=== PATIENT | male | born 1970 | race Caucasian/White ===

== ENCOUNTER 2016-12-20 06:16 | Inpatient (IN) | payer SELFPAY ==
[~2016-12-20] VITALS: Ht 172.7 cm; Wt 124.3 kg
[2016-12-20 06:20] VITALS: BP 155/87; PULSE 100; RESP 22; TEMP 97.9; O2SAT 94
[2016-12-20] MEDS ORDERED: METF1000 PO (06:25)
[2016-12-20] MEDS ORDERED: LISI-515 PO (06:25)
[2016-12-20] MEDS ORDERED: GLYB5TAB3 PO (06:25)
--- NOTE | 2016-12-20 06:28 | PD ---
HPI . Dyspnea Chief Complaint: Respiratory Symptoms Time Seen by Provider: 06:21 Travel History International Travel<30 days: No Contact w/Intl Traveler<30days: No Traveled to known affect area: No History of Present Illness HPI This patient presents by [facility] with the chief complaint of acute dyspnea. He had the onset of dyspnea approximately one hour prior to presentation. He reports no chest pain. No cough or fever. EMS reports initial saturations of 88%. Rales were heard on exam. He was treated in route with BiPAP and a single sublingual nitroglycerin. Symptoms are markedly improved at presentation. The patient does report a previous similar history. He states that he is supposed to be on blood pressure medication and diabetes medication but does not take it. No noted modifying factors. Symptoms were initially severe but are now mild. [facility] Social History Tobacco Use: Yes Allergies-Medications (Allergen,Severity, Reaction): Coded Allergies: codeine (Verified Allergy, Mild, 12/20/16) says jourdan riley Reported Meds & Prescriptions Reported Meds & Active Scripts Active Reported Glyburide 5 Mg Tab 10 Mg PO BID Take with meals at the same time each day Lisinopril 20 Mg Tab 20 Mg PO BID Metformin (Metformin HCl) 1,000 Mg Tab 1,000 Mg PO BID With a meal Review of Systems Except as stated in HPI: all other systems reviewed are Neg General / Constitutional: No: Fever, Chills Cardiovascular: No: Chest Pain or Discomfort Respiratory: Positive: Shortness of Breath Musculoskeletal: No: Edema Physical Exam Narrative GENERAL: Patient is lucid and able to give his own history. He is able to speak to us without any significant dyspnea. SKIN: Warm and dry. HEAD: Atraumatic. Normocephalic. EYES: Pupils equal and round. Extraocular movements are intact. ENT: No nasal bleeding or discharge. Mucous membranes pink and moist. NECK: Trachea midline. Neck is supple. CARDIOVASCULAR: Regular rate and rhythm. Heart sounds are normal. RESPIRATORY: No accessory muscle use. He is obese and breath sounds are diminished throughout. Apical breath sounds are clear. I suspect that the decreased breath sounds are secondary to obesity GASTROINTESTINAL: Abdomen soft, non-tender, nondistended. MUSCULOSKELETAL: No obvious deformities. No edema. NEUROLOGICAL: Awake and alert. No obvious cranial nerve deficits. Motor grossly within normal limits. Normal speech. PSYCHIATRIC: Appropriate mood and affect; insight and judgment normal. Data Data Last Documented VS Vital Signs Date Time Temp Pulse Resp B/P Pulse Ox O2 Delivery O2 Flow Rate FiO2 12/20/16 06:33 98 95 Nasal Cannula 2 12/20/16 06:20 97.9 22 155/87 Orders Complete Blood Count With Diff (12/20/16 06:21) Comprehensive Metabolic Panel (12/20/16 06:21) B-Type Natriuretic Peptide (12/20/16 06:21) D-Dimer (12/20/16 06:21) Act Partial Throm Time (Ptt) (12/20/16 06:21) Prothrombin Time / Inr (Pt) (12/20/16 06:21) Magnesium (Mg) (12/20/16 06:21) Ckmb (Isoenzyme) Profile (12/20/16:21) Troponin I (12/20/16 06:21) Iv Access Insert/Monitor (12/20/16 06:21) Ecg Monitoring (12/20/16 06:21) Oximetry (12/20/16 06:21) Oxygen Administration (12/20/16 06:21) Chest, Single Ap (12/20/16 06:21) Sodium Chloride 0.9% Flush (Ns Flush) (12/20/16 06:30) Furosemide Inj (Lasix Inj) (12/20/16 06:30) Aspirin Chew (Aspirin Chew) (12/20/16 06:30) Nitroglycerin 2% Oint (Nitroglycerin 2% (12/20/16 06:30) Labs Laboratory Tests Test 12/20/16 06:25 White Blood Count 11.9 TH/MM3 Red Blood Count 5.20 MIL/MM3 Hemoglobin 13.1 GM/DL Hematocrit 40.0 % Mean Corpuscular Volume 76.9 FL Mean Corpuscular Hemoglobin 25.1 PG Mean Corpuscular Hemoglobin 32.7 % Concent Red Cell Distribution Width 15.6 % Platelet Count 293 TH/MM3 Mean Platelet Volume 8.1 FL Neutrophils (%) (Auto) 71.2 % Lymphocytes (%) (Auto) 17.5 % Monocytes (%) (Auto) 7.3 % Eosinophils (%) (Auto) 3.2 % Basophils (%) (Auto) 0.8 % Neutrophils # (Auto) 8.5 TH/MM3 Lymphocytes # (Auto) 2.1 TH/MM3 Monocytes # (Auto) 0.9 TH/MM3 Eosinophils # (Auto) 0.4 TH/MM3 Basophils # (Auto) 0.1 TH/MM3 CBC Comment DIFF FINAL Differential Comment MDM Medical Decision Making Medical Screen Exam Complete: Yes Emergency Medical Condition: Yes Medical Record Reviewed: Yes (this patient has no medical records here for review) Interpretation(s) EKG shows sinus rhythm with a rate of 102. No ST segment elevation or depression. Differential Diagnosis Differential diagnosis of dyspnea includes but is not limited to congestive heart failure, pneumonia, wheezing, pneumothorax, pulmonary embolism Narrative Course This patient presents with acute dyspnea. He has a history of hypertension and does not take his medications. He was markedly improved on arrival here following treatment per EMS with BiPAP and nitroglycerin. The patient will be worked up for ACS, CHF, PE, pneumonia. In the meantime, he will be treated with IV Lasix and Nitropaste. He will be given an aspirin. He is currently on nasal cannula oxygen. His respiratory status will be closely monitored. This patient's care is being turned over to the oncoming provider at 7 AM. Last Impressions Chest X-Ray 12/20/16 06 Signed Impressions: Service Date/Time: Tuesday, December 20, 2016 06:16 - CONCLUSION: 1. Cardiomegaly with mild interstitial prominence characteristic of some degree of vascular congestion or volume overload. 2. Minimal bibasilar atelectatic changes. No confluent infiltrate. Jaden Tam MD The chest x-ray was independently viewed by me. Critical Care Narrative Aggregate critical care time was 30 minutes. Time to perform other separately billable procedures was not included in the critical care time. My time did not include minutes spent treating any other patients simultaneously or on activities that did not directly contribute to the patient's treatment. The services I provided to this patient were to treat and/or prevent clinically significant deterioration due to dyspnea and hypoxia I provided critical care services requiring my management, as noted below: Chart data review, documentation time, medication orders and management, vital sign assessments/reviewing monitor data, ordering and reviewing lab tests, ordering and interpreting/reviewing x-rays and diagnostic studies, care of the patient and discussion of the patient with the admitting physicians Diagnosis Primary Impression: Dyspnea Qualified Code: R06.00 - Dyspnea, unspecified type Additional Impression: Pulmonary edema Qualified Code: J81.0 - Acute pulmonary edema Kim Rojas MD Dec 20, 2016 06:28
[2016-12-20 06:30] VITALS: O2SAT 95
[2016-12-20] MEDS ORDERED: FUROSEMIDE 40 MG/4 ML VIAL IVP ONE (06:30)
[2016-12-20] MEDS ORDERED: SODIUM CHLORIDE 0.9% FLUSH 10 ML FLUSH IVF PRN (06:30)
[2016-12-20] MEDS ORDERED: NITROGLYCERIN 2% OINT 1 GM PACKET TOPICAL ONE (06:30)
[2016-12-20] MEDS ORDERED: ASPIRIN 81 MG CHEW TAB CHEW ONE (06:30)
[2016-12-20 06:46] LABS: AUTOMATED NEUTROPHIL # 8.5 TH/MM3 (1.8-7.7); BASOPHIL # 0.1 TH/MM3 (0-0.2); BASOPHIL % 0.8 % (0.0-2.0); EOSINOPHIL # 0.4 TH/MM3 (0-0.4); EOSINOPHIL % 3.2 % (0.0-4.0); HEMO FLAGS DIFF FINAL; LYMPH % 17.5 % (9.0-44.0); LYMPHOCYTE # 2.1 TH/MM3 (1.0-4.8); MEAN CELL VOLUME 76.9 FL (80.0-100.0); MEAN CORPUSCULAR HEMOGLOBIN 25.1 PG (27.0-34.0); MEAN CORPUSCULAR HGB CONC 32.7 % (32.0-36.0); MONO % 7.3 % (0.0-8.0); NEUT % 71.2 % (16.0-70.0); PLATELET COUNT 293 TH/MM3 (150-450); RED CELL DISTRIBUTION WIDTH 15.6 % (11.6-17.2); WHITE BLOOD COUNT 11.9 TH/MM3 (4.0-11.0)
--- NOTE | 2016-12-20 06:46 | RADRPT ---
EXAM DATE/TIME: 12/20/2016 06:16 [facility] COMPARISON: No previous studies available for comparison. INDICATIONS : Shortness of breath MEDICAL HISTORY : Diabetes mellitus type II. SURGICAL HISTORY : None. ENCOUNTER: Initial ACUITY: 1 day PAIN SCORE: 7/10 LOCATION: Bilateral chest FINDINGS: A single view of the chest demonstrates the lungs to be symmetrically aerated with minimal bibasilar atelectatic changes. Heart size is prominent with minimal interstitial prominence suggesting some deg ree of vascular congestion or volume overload. No effusions. Osseous structures are intact with some degenerative spurring of the dorsal spine. Multiple surgical pins in the proximal right humerus CONCLUSION: 1. Cardiomegaly with mild interstitial prominence characteristic of some degree of vascular congestio n or volume overload. 2. Minimal bibasilar atelectatic changes. No confluent infiltrate. Jaden Tam MD on December 20, 2016 at 6:42 Board Certified Radiologist. This report was verified electronically.
[2016-12-20 06:59] LABS: APTT (PATIENT) 26.4 SEC (24.3-30.1); PROTHROMBIN TIME - PATIENT 10.5 SEC (9.8-11.6)
[2016-12-20 07:03] LABS: BICARBONATE 21.5 MEQ/L (21.0-32.0); MAGNESIUM 1.7 MG/DL (1.5-2.5); POTASSIUM 3.8 MEQ/L (3.5-5.1); TOTAL BILIRUBIN ADULT 0.3 MG/DL (0.2-1.0)
[2016-12-20 07:11] LABS: CALCIUM-PROTEIN CORRECTED 7.3 MG/DL (8.5-10.1)
[2016-12-20 07:49] VITALS: BP 160/82; PULSE 96; RESP 20; O2SAT 97
[2016-12-20] MEDS ORDERED: IOHEXOL 350 MG/ML 10 ML VIAL (for RAD DIAG) IV ONE (07:54)
--- NOTE | 2016-12-20 11:51 | RADRPT ---
EXAM DATE/TIME: 12/20/2016 07:30 [facility] COMPARISON: CHEST SINGLE AP, December 20, 2016, 6:16. INDICATIONS : Shortness of breath and bilateral chest pain today. IV CONTRAST: 74 cc Omnipaque 350 (iohexol) IV RADIATION DOSE: 15.7 CTDIvol (mGy) MEDICAL HISTORY : Hypercholesterolemia. Hypertension. Hyperlipedema, Diabetes. SURGICAL HISTORY : Shoulder, leg ENCOUNTER: Initial ACUITY: 1 day PAIN SCALE: 6/10 LOCATION: Bilateral chest TECHNIQUE: Volumetric scanning of the chest was performed using a pulmonary embolism protocol MIP images were re constructed. Using automated exposure control and adjustment of the mA and/or kV according to patien t size, radiation dose was kept as low as reasonably achievable to obtain optimal diagnostic quality images. DICOM format image data is available electronically for review and comparison. Follow-up recommendations for detected pulmonary nodules are based at a minimum on nodule size and pa tient risk factors according to Fleischner Society Guidelines. FINDINGS: PULMONARY ARTERIES: No filling defects are seen in the pulmonary arteries through the segmental level. LUNGS: There is no consolidation or pneumothorax . No concerning pulmonary nodule is visualized. There is i nterlobular septal thickening and some interstitial edema. PLEURAE: There are small bilateral pleural effusions. MEDIASTINUM: There is good visualization of the great vessels of the middle mediastinum. Heart enlarged. There ar e some scattered borderline prominent mediastinal and hilar lymph nodes including subcarinal adenopat hy. MUSCULOSKELETAL: Within normal limits for patient age. MISCELLANEOUS: The visualized upper abdominal organs demonstrate no acute abnormality. CONCLUSION: 1. Cardiomegaly with interstitial edema and small pleural effusions, likely CHF. 2. No evidence for pulmonary embolism. 3. Borderline prominent mediastinal and hilar adenopathy. Guy Kohler MD on December 20, 2016 at 7:49 Board Certified Radiologist. This report was verified electronically.
[2016-12-20] MEDS ORDERED: ACETAMINOPHEN 325 MG TAB ONE (12:23)
--- NOTE | 2016-12-20 13:00 | PD ---
Data Data Last Documented VS Vital Signs Date Time Temp Pulse Resp B/P (MAP) Pulse Ox O2 Delivery O2 Flow Rate FiO2 12/20/16 07:49 96 20 160/82 (108) 97 Nasal Cannula 2 12/20/16 06:20 97.9 Orders Orders Complete Blood Count With Diff (12/20/16 06:21) Comprehensive Metabolic Panel (12/20/16 06:21) B-Type Natriuretic Peptide (12/20/16 06:21) D-Dimer (12/20/16 06:21) Act Partial Throm Time (Ptt) (12/20/16 06:21) Prothrombin Time / Inr (Pt) (12/20/16 06:21) Magnesium (Mg) (12/20/16 06:21) Ckmb (Isoenzyme) Profile (12/20/16 06:21) Troponin I (12/20/16 06:21) Iv Access Insert/Monitor (12/20/16 06:21) Ecg Monitoring (12/20/16 06:21) Oximetry (12/20/16 06:21) Oxygen Administration (12/20/16 06:21) Chest, Single Ap (12/20/16 06:21) Sodium Chloride 0.9% Flush (Ns Flush) (12/20/16 06:30) Furosemide Inj (Lasix Inj) (12/20/16 06:30) Aspirin Chew (Aspirin Chew) (12/20/16 06:30) Nitroglycerin 2% Oint (Nitroglycerin 2% (12/20/16 06:30) Ct Pulmonary Angiogram (12/20/16 ) Electrocardiogram (12/20/16 06:21) Iohexol 350 Inj (Omnipaque 350 Inj) (12/20/16 07:54) Labs Laboratory Tests Test 12/20/16 06:25 White Blood Count 11.9 TH/MM3 Red Blood Count 5.20 MIL/MM3 Hemoglobin 13.1 GM/DL Hematocrit 40.0 % Mean Corpuscular Volume 76.9 FL Mean Corpuscular Hemoglobin 25.1 PG Mean Corpuscular Hemoglobin Concent 32.7 % Red Cell Distribution Width 15.6 % Platelet Count 293 TH/MM3 Mean Platelet Volume 8.1 FL Neutrophils (%) (Auto) 71.2 % Lymphocytes (%) (Auto) 17.5 % Monocytes (%) (Auto) 7.3 % Eosinophils (%) (Auto) 3.2 % Basophils (%) (Auto) 0.8 % Neutrophils # (Auto) 8.5 TH/MM3 Lymphocytes # (Auto) 2.1 TH/MM3 Monocytes # (Auto) 0.9 TH/MM3 Eosinophils # (Auto) 0.4 TH/MM3 Basophils # (Auto) 0.1 TH/MM3 CBC Comment DIFF FINAL Differential Comment Prothrombin Time 10.5 SEC Prothromb Time International Ratio 1.0 RATIO Activated Partial Thromboplast Time 26.4 SEC D-Dimer Quantitative (PE/DVT) 0.85 MG/L FEU Blood Urea Nitrogen 12 MG/DL Creatinine 0.75 MG/DL Random Glucose 164 MG/DL Total Protein 6.5 GM/DL Albumin 2.6 GM/DL Calcium Level 7.0 MG/DL Magnesium Level 1.7 MG/DL Alkaline Phosphatase 103 U/L Aspartate Amino Transf (AST/SGOT) 17 U/L Alanine Aminotransferase (ALT/SGPT) 31 U/L Total Bilirubin 0.3 MG/DL Sodium Level 139 MEQ/L Potassium Level 3.8 MEQ/L Chloride Level 108 MEQ/L Carbon Dioxide Level 21.5 MEQ/L Anion Gap 10 MEQ/L Estimat Glomerular Filtration Rate 112 ML/MIN Protein Corrected Calcium 7.3 MG/DL Total Creatine Kinase 64 U/L Troponin I 0.03 NG/ML B-Type Natriuretic Peptide 120 PG/ML MDM Diagnosis Primary Impression: Dyspnea Additional Impression: Pulmonary edema Tye Pena MD Dec 20, 2016 13:00
[2016-12-20 13:30] VITALS: BP 125/70; PULSE 83; RESP 18; TEMP 97.9; O2SAT 94
[2016-12-20] MEDS ORDERED: DEXTROSE 50% IN WATER 50 ML VIAL(D50) IV PRN (14:45)
[2016-12-20] MEDS ORDERED: cloNIDine HCL 0.1 MG TAB PO PRN (14:45)
[2016-12-20] MEDS ORDERED: GLUCAGON 1 MG/ML VIAL OTHER PRN (14:45)
--- NOTE | 2016-12-20 14:52 | HHI.HP ---
HPI Service Family Medicine Primary Care Physician No Primary Care Physician Admission Diagnosis Diagnoses: International Travel<30 Days: No Contact w/Intl Traveler<30days: No Known Affected Area: No History of Present Illness Mr. Beverly is a 46-year-old white male with a past medical history of hypertension and diabetes presenting to the ED with shortness of breath. He states this morning he woke up, started coughing, and couldn't breathe. His sister called 911. States that he wakes up with shortness of breath regularly, but it usually passes. This time it did not. He states that this has happened before which resulted in his hospitalization 3-4 years ago in [place]. The last time he saw a doctor was back in August for his blood pressure and diabetes medication. However, he has not taken any medication in a while. States last night he didn't eat a big salty male. He cannot walk far without getting short of breath. He has no leg swelling. No orthopnea. He is actively trying to lose weight. He has lost about 25 pounds since June. He regularly drinks 2 gallons of water a day and has been for the past several years. He feels that this episode stems from his working in the [employer] for 19-1/2 years in [place]. (Angelina Sanchez MD R1) Review of Systems Constitutional: DENIES: Diaphoretic episodes, Fever, Chills Eyes: DENIES: Blurred vision Ears, nose, mouth, throat: COMPLAINS OF: Hearing loss (because of past exposure to loud noises), DENIES: Nasal discharge Respiratory: COMPLAINS OF: Cough, Sputum production (black sputum) Cardiovascular: COMPLAINS OF: Chest pain (310, pressure like pain, radiation through to his back, better with ibuprofen and oxygen, nothing makes it worse) Gastrointestinal: COMPLAINS OF: Diarrhea (3 weeks duration, 6-8 bowel movements a day, no recent antibiotic use, no blood or mucus, brownish/greenish color) Musculoskeletal: DENIES: Muscle aches, Stiffness, Joint Swelling Hematologic/lymphatic: DENIES: Bruising Neurologic: DENIES: Localized weakness, Paresthesias (Angelina Sanchez MD R1) Past Family Social History Past Medical History HTN DM Hyperlipidemia Past Surgical History Rotator cuff repair in 2006 Leg surgery at the age of [age] years old (Angelina Sanchez MD R1) Allergies: Coded Allergies: codeine (Verified Allergy, Mild, 12/20/16) says makes puffy Active Ordered Medications Current Medications Medications (Trade) Dose Ordered Sig/Karen Route Start Time Stop Time Status Last Admin (NS Flush) 2 ml UNSCH PRN IVF 12/20/16 06:30 12/20/16 06:30 Family History Mother-healthy Diet-dementia Siblings-older sister has hypertension PGF and PGM-heart failure Social History Alcohol use-sober for 26 years Smokes 2-3 cigarettes a day for a year, has quit before for 12 years Drug use-he use weed and cocaine quit at the age of 20 Lives in [place] with his sister in a condominium Employment-drives for [employer] (Angelina Sanchez MD R1) Physical Exam Vital Signs Vital Signs Date Time Temp Pulse Resp B/P (MAP) Pulse Ox O2 Delivery O2 Flow Rate FiO2 12/20/16 07:49 96 20 160/82 (108) 97 Nasal Cannula 2 12/20/16 06:33 98 95 Nasal Cannula 2 12/20/16 06:30 95 Nasal Cannula 2 12/20/16 06:30 95 Nasal Cannula 2 12/20/16 06:20 97.9 100 22 155/87 (109) 94 Physical Exam GENERAL: This is a well-nourished, well-developed obese patient, in no apparent distress. SKIN: No rashes, ecchymoses or lesions. Cool and dry. HEAD: Atraumatic. Normocephalic. No temporal or scalp tenderness. EYES: Pupils equal round and reactive. Extraocular motions intact. No scleral icterus. No injection or drainage. ENT: Nose without bleeding, purulent drainage or septal hematoma. Throat without erythema, tonsillar hypertrophy or exudate. Uvula midline. Airway patent. NECK: Trachea midline. No JVD or lymphadenopathy. Supple, nontender, no meningeal signs. CARDIOVASCULAR: Regular rate and rhythm without murmurs, gallops, or rubs. RESPIRATORY: Clear to auscultation. Breath sounds equal bilaterally. No wheezes , rales, or rhonchi. GASTROINTESTINAL: Abdomen obese soft, non-tender, nondistended. No hepato- splenomegaly, or palpable masses. No guarding. MUSCULOSKELETAL: Extremities without clubbing, cyanosis, or edema. No joint tenderness, effusion, or edema noted. No calf tenderness. Negative Homans sign bilaterally. NEUROLOGICAL: Awake and alert. Cranial nerves II through XII intact. Motor and sensory grossly within normal limits. Five out of 5 muscle strength in all muscle groups. Normal speech. Laboratory Laboratory Tests Test 12/20/16 06:25 White Blood Count 11.9 Red Blood Count 5.20 Hemoglobin 13.1 Hematocrit 40.0 Mean Corpuscular Volume 76.9 Mean Corpuscular Hemoglobin 25.1 Mean Corpuscular Hemoglobin Concent 32.7 Red Cell Distribution Width 15.6 Platelet Count 293 Mean Platelet Volume 8.1 Neutrophils (%) (Auto) 71.2 Lymphocytes (%) (Auto) 17.5 Monocytes (%) (Auto) 7.3 Eosinophils (%) (Auto) 3.2 Basophils (%) (Auto) 0.8 Neutrophils # (Auto) 8.5 Lymphocytes # (Auto) 2.1 Monocytes # (Auto) 0.9 Eosinophils # (Auto) 0.4 Basophils # (Auto) 0.1 CBC Comment DIFF FINAL Differential Comment Prothrombin Time 10.5 Prothromb Time International Ratio 1.0 Activated Partial Thromboplast Time 26.4 D-Dimer Quantitative (PE/DVT) 0.85 Blood Urea Nitrogen 12 Creatinine 0.75 Random Glucose 164 Total Protein 6.5 Albumin 2.6 Calcium Level 7.0 Magnesium Level 1.7 Alkaline Phosphatase 103 Aspartate Amino Transf (AST/SGOT) 17 Alanine Aminotransferase (ALT/SGPT) 31 Total Bilirubin 0.3 Sodium Level 139 Potassium Level 3.8 Chloride Level 108 Carbon Dioxide Level 21.5 Anion Gap 10 Estimat Glomerular Filtration Rate 112 Protein Corrected Calcium 7.3 Total Creatine Kinase 64 Troponin I 0.03 B-Type Natriuretic Peptide 120 (Angelina Sanchez MD R1) Result Diagram: 12/20/1625 12/20/1625 Imaging Last 24 hours Impressions Chest X-Ray 12/20/16 0621 Signed Impressions: Service Date/Time: Tuesday, December 20, 2016 06:16 - CONCLUSION: 1. Cardiomegaly with mild interstitial prominence characteristic of some degree of vascular congestion or volume overload. 2. Minimal bibasilar atelectatic changes. No confluent infiltrate. Jaden Tam MD CT Angiography 12/20/16 0000 Signed Impressions: Service Date/Time: Tuesday, December 20, 2016 07:30 - CONCLUSION: 1. Cardiomegaly with interstitial edema and small pleural effusions, likely CHF. 2. No evidence for pulmonary embolism. 3. Borderline prominent mediastinal and hilar adenopathy. Guy Kohler MD (Angelina Sanchez MD R1) Caprini VTE Risk Assessment Caprini VTE Risk Assessment: Mod/High Risk (score >= 2) Caprini Risk Assessment Model Point Value = 1 Point Value = 2 Point Value = 3 Point Value = 5 Age 41-60 Minor surgery BMI > 25 kg/m2 Swollen legs Varicose veins or History of unexplained or recurrent spontaneous Oral contraceptives or hormone replacement Sepsis (< 1 month) Serious lung disease, including pneumonia (< 1 month) Abnormal pulmonary function Acute myocardial infarction Congestive heart failure (< 1 month) History of inflammatory bowel disease Medical patient at bed rest Age 61-74 Arthroscopic surgery Major open surgery (> 45 min) Laparoscopic surgery (> 45 min) Malignancy Confined to bed (> 72 hours) Immobilizing plaster cast Central venous access Age >= 75 History of VTE Family history of VTE Factor V Leiden Prothrombin [id number] Lupus anticoagulant Anticardiolipin antibodies Elevated serum homocysteine Heparin-induced thrombocytopenia Other congenital or acquired thrombophilia Stroke (< 1 month) Elective arthroplasty Hip, pelvis, or leg fracture Acute spinal cord injury (< 1 month) Prophylaxis Regimen Total Risk Factor Score Risk Level Prophylaxis Regimen 0-1 Low Early ambulation 2 Moderate Order ONE of the following: *Sequential Compression Device (SCD) *Heparin 5000 units SQ BID 3-4 Higher Order ONE of the following medications: *Heparin 5000 units SQ TID *Enoxaparin/Lovenox 40 mg SQ daily (WT < 150 kg, CrCl > 30 mL/min) *Enoxaparin/Lovenox 30 mg SQ daily (WT < 150 kg, CrCl > 10-29 mL/min) *Enoxaparin/Lovenox 30 mg SQ BID (WT < 150 kg, CrCl > 30 mL/min) AND/OR *Sequential Compression Device (SCD) 5 or more Highest Order ONE of the following medications: *Heparin 5000 units SQ TID (Preferred with Epidurals) *Enoxaparin/Lovenox 40 mg SQ daily (WT < 150 kg, CrCl > 30 mL/min) *Enoxaparin/Lovenox 30 mg SQ daily (WT < 150 kg, CrCl > 10-29 mL/min) *Enoxaparin/Lovenox 30 mg SQ BID (WT < 150 kg, CrCl > 30 mL/min) AND *Sequential Compression Device (SCD) (Angelina Sanchez MD R1) Assessment and Plan Assessment and Plan Mr. Beverly is a 46-year-old white male with a past medical history of hypertension and diabetes presenting to the ED with shortness of breath since waking this morning. Likely due to congestive heart failure versus PE versus prolonged exposure to coal dust. Code Status DNR Discussed Condition With Dr. Koroma and (Angelina Sanchez MD R1) Attending Attestation THIS CASE WAS DISCUSSED WITH THE RESIDENT PHYSICIANS. I HAVE REVIEWED THE RECORD AND AGREE WITH THE ABOVE NOTE AND PLAN OF CARE WAS DISCUSSED. I HAVE AUTHORIZED THE ORDER FOR ADMISSION TO AN IN-PATIENT STATUS. (Joe White MD) Problem List: (1) Dyspnea ICD Codes: R06.00 - Dyspnea, unspecified Status: Acute Plan: Patient has a past medical history of uncontrolled hypertension, drinks 2 gallons ordered today, chest x-ray shows cardiomegaly, slightly increased BNP at 120. Likely congestive heart failure. Chest x-ray- Cardiomegaly with mild interstitial prominence characteristic of some degree of vascular congestion or volume overload. CTA- 1. Cardiomegaly with interstitial edema and small pleural effusions, likely CHF. 2. No evidence for pulmonary embolism. -Diurese with furosemide 40 mg IV every 12 hours -Potassium chloride 20 mEq every 12 hours -Carvedilol 3.125 mg by mouth every 12 hours -Clonidine 0.1 mg every 6 hours when necessary -Fluid restriction to 1-1/2 L per day -Ordered 2-D echo cardiogram -Daily weights -Troponins every 6 hours 2 -EKG every 6 hours 2 -A.m. labs (2) Hypertension ICD Codes: I10 - Essential (primary) hypertension Status: Chronic Plan: Uncontrolled. Patient has not seen a PCP in a few months and has not taken medications. -Lisinopril 10 mg by mouth daily -Aspirin 81 mg by mouth daily (3) Diabetes mellitus ICD Codes: E11.9 - Type 2 diabetes mellitus without complications Status: Chronic Plan: -Sliding scale insulin -Ordered hemoglobin A1c labs (4) Hyperlipemia ICD Codes: E78.5 - Hyperlipidemia, unspecified Status: Chronic (5) FEN Status: Acute Plan: Fluids: Fluid restrict Electrolytes: Monitor and replace as needed Nutrition: regular heart healthy diet DVT prophylaxis: Enoxaparin sodium 40 mg subcutaneously per day Tylenol 650 mg by mouth every 6 hours when necessary for 1 through 10 pain Ondansetron 4 mg IV for nausea when necessary (Angelina Sanchez MD R1) Physician Certification 2 Midnight Certification Type: Admission for Inpatient Services Order for Inpatient Services The services are ordered in accordance with Medicare regulations or non- Medicare payer requirements, as applicable. In the case of services not specified as inpatient-only, they are appropriately provided as inpatient services in accordance with the 2-midnight benchmark. Estimated LOS (days): 3 days is the estimated time the patient will need to remain in the hospital, assuming treatment plan goals are met and no additional complications. Post-Hospital Plan: Home (Angelina Sanchez MD R1) Problem Qualifiers (1) Dyspnea: Qualified Codes: R06.00 - Dyspnea, unspecified (2) Hypertension: Qualified Codes: I10 - Essential (primary) hypertension (3) Diabetes mellitus: (4) Hyperlipemia: Qualified Codes: E78.5 - Hyperlipidemia, unspecified Angelina Sanchez MD R1 Dec 20, 2016 14:52 Joe White MD Dec 21, 2016 16:07
[2016-12-20] MEDS: INSULIN ASPART SUPPLEMENTAL SCALE SQ SCH ×2 (16:00→21:00)
--- NOTE | 2016-12-20 16:04 | EKG ---
Date Performed: 12/20/2016 Time Performed: 06:21:28 PTAGE: 46 years EKG: SINUS TACHYCARDIA POSSIBLE LEFT ATRIAL ENLARGEMENT NONSPECIFIC T-WAVE ABNORMALITY ABNORMAL RHYTHM ECG NO PREVIOUS TRACING DOCTOR: Car Sandra Interpretating Date/Time 12/20/2016 16:02:16
[2016-12-20 20:00] VITALS: BP 143/82; PULSE 92; RESP 20; TEMP 98; O2SAT 97
[2016-12-20 20:24] VITALS: PULSE 87
[2016-12-20] MEDS ORDERED: SODIUM CHLORIDE 0.9% FLUSH 10 ML FLUSH IV FLUSH PRN (20:45)
[2016-12-20] MEDS: POTASSIUM CHLORIDE 20 MEQ CONTROLLED RELEASE TAB PO SCH (21:24)
[2016-12-20] MEDS: CARVEDILOL 3.125 MG TAB PO SCH (21:24)
[2016-12-20] MEDS: HEPARIN SODIUM - SQ 10,000 UNITS/ML VIAL SQ SCH (21:25)
[2016-12-20] MEDS: SODIUM CHLORIDE 0.9% FLUSH 10 ML FLUSH IV FLUSH SCH (21:25)
--- NOTE | 2016-12-20 21:35 | EKG ---
Date Performed: 12/20/2016 Time Performed: 20:23:00 PTAGE: 46 years EKG: Sinus rhythm NONSPECIFIC T-WAVE ABNORMALITY BORDERLINE ECG PREVIOUS TRACING : 12/20/2016 06.21 No significant change from previous tracing noted. DOCTOR: Félix Valdez Interpretating Date/Time 12/20/2016 21:33:52
[2016-12-21] VITALS (7 sets, daily range): BP systolic 127–158; BP diastolic 78–89; PULSE 79–92; RESP 18–20; TEMP 97.7–98.4; O2SAT 94–100
[2016-12-21 01:54] LABS: HEMATOCRIT 39.8 % (39.0-51.0); MEAN CELL VOLUME 76.7 FL (80.0-100.0); MEAN CORPUSCULAR HEMOGLOBIN 25.3 PG (27.0-34.0); MEAN CORPUSCULAR HGB CONC 32.9 % (32.0-36.0); PLATELET COUNT 268 TH/MM3 (150-450); RED BLOOD COUNT 5.19 MIL/MM3 (4.50-5.90); RED CELL DISTRIBUTION WIDTH 15.3 % (11.6-17.2); REVIEW FLAG FINAL; WHITE BLOOD COUNT 11.9 TH/MM3 (4.0-11.0)
[2016-12-21 02:07] LABS: ALKALINE PHOSPHATASE 101 U/L (45-117); ALT (GPT) 30 U/L (12-78); ANION GAP 7 MEQ/L (5-15); AST (GOT) 17 U/L (15-37); BICARBONATE 24.7 MEQ/L (21.0-32.0); BLOOD UREA NITROGEN 13 MG/DL (7-18); CHLORIDE 108 MEQ/L (98-107); GLOMERULAR FILTRATION RATE 117 ML/MIN (>89); HDL CHOLESTEROL 23.5 MG/DL (40.0-60.0); LDL CHOLESTEROL 133 MG/DL (0-99); MAGNESIUM 1.8 MG/DL (1.5-2.5); POTASSIUM 3.8 MEQ/L (3.5-5.1); SODIUM (NA) 140 MEQ/L (136-145); TOTAL BILIRUBIN ADULT 0.4 MG/DL (0.2-1.0)
[2016-12-21] MEDS: INSULIN ASPART SUPPLEMENTAL SCALE SQ SCH ×2 (06:02→12:20)
--- NOTE | 2016-12-21 08:47 | HHI.FPPN ---
Subjective Remarks FM Attending Note: Patient seen and examined. S: Chart and all resident physician notes reviewed. In summary this is a 46 year old male who was admitted with an admission diagnosis of New Onset SOB, ? CHF. This patient has a past medical history of hypertension and diabetes who presented to the emergency room complaining of shortness of breath. The patient reported that on the morning of admission he awoke and started coughing and couldn't breathe. He lives with his sister who called 911. He notes previously that similar episodes have occurred which he attributes to working for 20 years in the [employer] system. He does not see a doctor regularly. He denies any recent URI symptoms. He notes that his cough frequently has a thick dark sputum. The patient does report smoking 2-3 cigarettes a day. He had quit in the past for up to 12 years. He does check his fasting glucose levels episodically but reports it is normally around 140-150. His activity level is minimal. Objective Vitals Vital Signs Date Time Temp Pulse Resp B/P (MAP) Pulse Ox O2 Delivery O2 Flow Rate FiO2 12/21/16 04:00 Room Air 12/21/16 04:00 97.8 79 20 158/89 (112) 96 12/21/16 03:27 97 12/21/16 00:00 97.9 86 20 145/87 (106) 98 12/21/16 00:00 Room Air 12/20/16 20:24 87 12/20/16 20:00 Room Air 12/20/16 20:00 98.0 92 20 143/82 (102) 97 12/20/16 13:30 97.9 83 18 125/70 (88) 94 I/O 12/20/16 12/20/16 12/20/16 12/21/16 12/21/16 12/21/16 07:00 15:00 23:00 07:00 15:00 23:00 Intake Total 0 ml 100 ml Output Total 700 ml Balance -700 ml 0 ml 100 ml Intake Oral 100 ml IV Total 0 ml Output Urine Total 700 ml # Voids 1 2 Result Diagram: 12/21/16 0140 12/21/16 0140 Other Results Item Value Date Time Magnesium Level 1.8 MG/DL 12/21/16 014 Total Bilirubin 0.4 MG/DL 12/21/16 0140 Aspartate Amino Transf (AST/SGOT) 17 U/L 12/21/16 0140 Alanine Aminotransferase (ALT/SGPT) 30 U/L 12/21/16 0140 Alkaline Phosphatase 101 U/L 12/21/16 0140 Total Creatine Kinase 58 U/L 12/20/162019 Total Creatine Kinase 53 U/L 12/21/16 1058 Troponin I 0.03 NG/ML 12/20/162019 Troponin I 0.03 NG/ML 12/21/16 014 B-Type Natriuretic Peptide 120 PG/ML H 12/20/16 0625 Triglycerides Level 157 MG/DL H 12/21/160 Cholesterol Level 188 MG/DL 12/21/16139 LDL Cholesterol 133 MG/DL H 12/21/16 014 HDL Cholesterol 23.5 MG/DL L 12/21/16139 Cholesterol/HDL Ratio 8.00 RATIO 12/21/16139 D-Dimer Quantitative (PE/DVT) 0.85 MG/L FEU H 12/20/16 0625 Initial EKG report: SINUS TACHYCARDIA POSSIBLE LEFT ATRIAL ENLARGEMENT NONSPECIFIC T-WAVE ABNORMALITY Imaging Last 48 hours Impressions Chest X-Ray 12/20/16 0621 Signed Impressions: Service Date/Time: Tuesday, December 20, 2016 06:16 - CONCLUSION: 1. Cardiomegaly with mild interstitial prominence characteristic of some degree of vascular congestion or volume overload. 2. Minimal bibasilar atelectatic changes. No confluent infiltrate. Jaden Tam MD CT Angiography 12/20/16 0000 Signed Impressions: Service Date/Time: Tuesday, December 20, 2016 07:30 - CONCLUSION: 1. Cardiomegaly with interstitial edema and small pleural effusions, likely CHF. 2. No evidence for pulmonary embolism. 3. Borderline prominent mediastinal and hilar adenopathy. Guy Kohler MD Objective Remarks O. CONSTITUTIONAL/GEN: normally nourished with an elevated BMI, in NAD. EYES: conjunctiva normal, PERRLA, EOMI. NECK: thyroid midline, carotids symmetrical. No JVD. LUNGS: clear A-P with somewhat prolonged forced expiratory rate, respiratory effort is normal. CARDIOVASCULAR: RR without murmur or gallop. No significant edema. GI/ABD: soft without masses, without organomegaly. : no CVA tenderness NEURO: No focal deficits. SKIN: color normal, no rashes noted. HEME/LYMPH: no bruising, petechia or significant adenopathy MUSC: back is normal in appearance. Extremities are normal in appearance. PSYCH/MENTAL STATUS: Alert and oriented x 3. A/P Assessment and Plan Mr. Beverly is a 46-year-old white male with a past medical history of hypertension and diabetes presenting to the ED with shortness of breath since waking this morning. Likely due to congestive heart failure versus PE versus prolonged exposure to coal dust. Problem List: (1) Dyspnea ICD Codes: R06.00 - Dyspnea, unspecified Status: Acute Plan: Patient has a past medical history of uncontrolled hypertension, drinks 2 gallons ordered today, chest x-ray shows cardiomegaly, slightly increased BNP at 120. Likely congestive heart failure. Chest x-ray- Cardiomegaly with mild interstitial prominence characteristic of some degree of vascular congestion or volume overload. CTA- 1. Cardiomegaly with interstitial edema and small pleural effusions, likely CHF. 2. No evidence for pulmonary embolism. -Diurese with furosemide 40 mg IV every 12 hours -Potassium chloride 20 mEq every 12 hours -Carvedilol 3.125 mg by mouth every 12 hours -Clonidine 0.1 mg every 6 hours when necessary -Fluid restriction to 1-1/2 L per day -Ordered 2-D echo cardiogram -Daily weights -Troponins every 6 hours 2 -EKG every 6 hours 2 -A.m. labs 12/21/16 This patient has a mildly elevated BNP. I would be more suspecting that his shortness of breath is due to an exacerbation of COPD and congestive heart failure. We have ordered an echocardiogram to further evaluate. We'll also order nebulizer treatments to see if this helps with his sensation of shortness of breath. (2) Hypertension ICD Codes: I10 - Essential (primary) hypertension Status: Chronic Plan: Uncontrolled. Patient has not seen a PCP in a few months and has not taken medications. -Lisinopril 10 mg by mouth daily -Aspirin 81 mg by mouth daily (3) Diabetes mellitus ICD Codes: E11.9 - Type 2 diabetes mellitus without complications Status: Chronic Plan: -Sliding scale insulin -Ordered hemoglobin A1c labs (4) Hyperlipemia ICD Codes: E78.5 - Hyperlipidemia, unspecified Status: Chronic (5) FEN Status: Acute Plan: Fluids: Fluid restrict Electrolytes: Monitor and replace as needed Nutrition: regular heart healthy diet DVT prophylaxis: Enoxaparin sodium 40 mg subcutaneously per day Tylenol 650 mg by mouth every 6 hours when necessary for 1 through 10 pain Ondansetron 4 mg IV for nausea when necessary Problem Qualifiers (1) Dyspnea: Qualified Codes: R06.00 - Dyspnea, unspecified (2) Hypertension: Qualified Codes: I10 - Essential (primary) hypertension (3) Diabetes mellitus: (4) Hyperlipemia: Qualified Codes: E78.5 - Hyperlipidemia, unspecified Joe White MD Dec 21, 2016 08:47
[2016-12-21] MEDS ORDERED: ASPIRIN 81 MG CHEW TAB CHEW SCH (09:00)
[2016-12-21] MEDS ORDERED: LISINOPRIL 10 MG TAB PO SCH (09:00)
[2016-12-21] MEDS ORDERED: ATORVASTATIN 80 MG TAB PO SCH (09:00)
[2016-12-21] MEDS ORDERED: FUROSEMIDE 40 MG/4 ML VIAL IVP SCH (09:00)
[2016-12-21] MEDS: CARVEDILOL 3.125 MG TAB PO SCH (09:07)
[2016-12-21] MEDS: POTASSIUM CHLORIDE 20 MEQ CONTROLLED RELEASE TAB PO SCH (09:07)
[2016-12-21] MEDS: SODIUM CHLORIDE 0.9% FLUSH 10 ML FLUSH IV FLUSH SCH (09:08)
[2016-12-21] MEDS: HEPARIN SODIUM - SQ 10,000 UNITS/ML VIAL SQ SCH (09:08)
[2016-12-21] MEDS ORDERED: ALBUTEROL SULFATE 90 MCG/ACT HFA 8 GM INHALER INH PRN (09:30)
[2016-12-21 12:00] LABS: CREATINE KINASE 53 U/L (39-308)
[2016-12-21] MEDS ORDERED: RESP: ALBUTEROL 2.5 MG/IPRATROPIUM 0.5 MG NEB (SCH) NEB (14:00)
--- NOTE | 2016-12-21 15:48 | PD.AMA ---
Against Medical Advice Note Diagnosis: (1) Hyperlipemia (2) Dyspnea (3) Hypertension (4) Pulmonary edema Discharge Disposition: Against Medical Advice Pt Condition on Discharge: Fair Recommended Treatment Course Recommended to follow up with primary care physician and to take medications as prescribed. AMA Statement Patient Earl Beverly has decided to leave the hospital against medical advice. This patient has the capacity to refuse care and understands the risks of leaving, including permanent disability and/or , and has had an opportunity to ask questions about his condition. The patient has been informed that he may return for care at any time, and follow up has been arranged/ advised. Discussed with Dr. 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 Derick Reed MD R3 Dec 21, 2016 15:48
[2016-12-21 16:27] LABS: HEMOGLOBIN A1a 1.1 %; HEMOGLOBIN Ao 83.2 %; HEMOGLOBIN LA1C 1.7 %; HEMOGLOBIN P3 3.9 %
[2016-12-21 16:31] LABS: HEMOGLOBIN A1a 1.1 %; HEMOGLOBIN Ao 82.9 %; HEMOGLOBIN LA1C 1.8 %
== END 2016-12-21 15:24 | disposition left against medical advice (07) | DRG 191 ==
LOC: NEPE 06:16 → NEDA 08:50 → N04B 13:01
PROVIDERS: ADMIT Family Medicine; ATTEND Family Medicine
DX: J44.1 Chronic obstructive pulmonary disease with (acute) exacerbation (principal); Z68.41 Body mass index [BMI] 40.0-44.9, adult; I11.0 Hypertensive heart disease with heart failure; I50.9 Heart failure, unspecified; E11.9 Type 2 diabetes mellitus without complications; F17.210 Nicotine dependence, cigarettes, uncomplicated; E78.5 Hyperlipidemia, unspecified; E66.9 Obesity, unspecified; Z66 Do not resuscitate; Z79.84 Long term (current) use of oral hypoglycemic drugs; Z91.14 Patient's other noncompliance with medication regimen
CPT/HCPCS: 71010; 71275; 80053; 80061; 82550; 82948; 83036; 83735; 83880; 84484; 85025; 85027; 85379; 85610; 85730; 93005; 94664; 96374; J1644; J1815; J1940; Q9967